=== PATIENT | male | born 1985 | race Caucasian/White ===

== ENCOUNTER 2020-07-18 08:49 | Emergency (ER) | payer MEDICAID ==
[~2020-07-18] VITALS: Ht 180.3 cm; Wt 86.4 kg
[2020-07-18 08:55] VITALS: Ht 180.3 cm; Wt 86.4 kg
[2020-07-18] MEDS ORDERED: SLEEPING PILL (08:56)
[2020-07-18] MEDS ORDERED: MOBIC7.5 MG PO (08:56)
[2020-07-18] MEDS ORDERED: MUSCLE RELAXER (08:57)
[2020-07-18] MEDS ORDERED: CYCLOBENZAPRINE10 MG PO (09:23)
[2020-07-18] MEDS ORDERED: MEDROL DOSE PACK4 MG PO (09:23)
[2020-07-18 10:00] VITALS: BP 109/54
== END 2020-07-18 10:00 | disposition home or self-care (01) ==
LOC: D.ER 08:49
DX: M54.6 Pain in thoracic spine (principal); M79.18 Myalgia, other site; T14.8XXA Other injury of unspecified body region, initial encounter; X50.9XXA Other and unspecified overexertion or strenuous movements or postures, initial encounter; Y93.9 Activity, unspecified; Y92.9 Unspecified place or not applicable